=== PATIENT | female | born 1960 | race Asian ===

== ENCOUNTER 2016-12-19 06:48 | Day surgery (SDC) | payer OTHER ==
[2016-12-18 14:55] VITALS: BMI 25.4
[2016-12-19] MEDS ORDERED: LIDOCAINE HCL 2% (20ML MULTI-DOSE VIAL) NR ONE (07:43)
[2016-12-19] MEDS ORDERED: PROPOFOL 20 ML ONE ×3 (07:43→07:44)
[2016-12-19 08:39] VITALS: TEMP 97.9
[2016-12-19 09:28] VITALS: BP 118/55; PULSE 58
== END 2016-12-19 09:28 | disposition home or self-care (01) ==
LOC: JASU-ENDO 06:48
PROVIDERS: ATTEND Internal Medicine Gastroenterology
PROC: 0DJD8ZZ Inspection of Lower Intestinal Tract, Via Natural or Artificial Opening Endoscopic (ICD-10-PCS; principal; 2016-12-19 08:00)
DX: Z12.11 Encounter for screening for malignant neoplasm of colon (principal)

== ENCOUNTER 2022-04-11 04:29 | Day surgery (SDC) | payer OTHER ==
[2022-04-10 15:02] VITALS: BMI 25.1
[2022-04-11] MEDS ORDERED: KETAMINE HCL 500 MG/10 ML VIAL ONE (07:13)
[2022-04-11 09:14] VITALS: BP 132/51; PULSE 61; RESP 15; TEMP 98
== END 2022-04-11 10:46 | disposition home or self-care (01) ==
LOC: JASU-ENDO 04:29
PROVIDERS: ATTEND Internal Medicine Gastroenterology
PROC: 0DJD8ZZ Inspection of Lower Intestinal Tract, Via Natural or Artificial Opening Endoscopic (ICD-10-PCS; principal; 2022-04-11 08:00)
DX: Z12.11 Encounter for screening for malignant neoplasm of colon (principal); K64.8 Other hemorrhoids; I10 Essential (primary) hypertension